=== PATIENT | female | born 1995 | race Caucasian/White ===

== ENCOUNTER 2020-11-21 07:50 | Emergency (ER) | payer OTHER ==
[2020-11-21 09:36] LABS: RED BLOOD COUNT 5.11 M/UL (4.00-5.10); WHITE BLOOD COUNT 6.9 K/UL (4.5-11.0)
[2020-11-21 09:54] LABS: BUN/CREATININE RATIO 15 (0-10)
[2020-11-21] MEDS ORDERED: BROMFED DM COU473 ML PO (12:05)
[2020-11-21] MEDS ORDERED: IBU600 MG PO (12:05)
== END 2020-11-21 12:25 | disposition home or self-care (01) ==
LOC: ER1 07:50
PROVIDERS: Nurse Practitioner
DX: J40 Bronchitis, not specified as acute or chronic (principal); R07.89 Other chest pain
CPT/HCPCS: 71045; 80053; 82550; 82553; 83874; 84439; 84443; 84484; 84703; 85025; 99285

== ENCOUNTER 2021-11-24 16:49 | Emergency (ER) | payer OTHER ==
[~2021-11-24 16:49] MED LIST: BROMFED DM COU473 ML PO; IBU600 MG PO
[2021-11-24 17:37] LABS: RED BLOOD COUNT 5.12 M/UL (4.00-5.10); WHITE BLOOD COUNT 10.6 K/UL (4.5-11.0)
[2021-11-24 18:00] LABS: BUN/CREATININE RATIO 14 (0-10)
[2021-11-24] MEDS ORDERED: PRENATAL 19 CH1 EAC1 PO (22:08)
[2021-11-26 23:11] LABS: CHLAMYDIA TRACHOMATIS, NAA Negative (Negative); NEISSERIA GONORRHOEAE, NAA Negative (Negative)
== END 2021-11-24 22:26 | disposition home or self-care (01) ==
LOC: ER1 16:49
PROVIDERS: Emergency Medicine
DX: O26.891 Other specified pregnancy related conditions, first trimester (principal); R10.30 Lower abdominal pain, unspecified
CPT/HCPCS: 80053; 81001; 84702; 85025; 87210; 99284